=== PATIENT | male | born 1995 | race Caucasian/White ===

== ENCOUNTER 2019-03-24 20:39 | Inpatient (IN) | payer BC ==
[2019-03-24] MEDS ORDERED: Charcoal ACTIVATED* 25 GM/120 ML BTL PO ONE (20:51)
--- NOTE | 2019-03-24 20:53 | ED ---
Substance Abuse/Use - HPI Summary HPI Summary: This patient is a 23 year old M brought in by ambulance to [facility] with a chief complaint of overdose on approximately 10 pills (10mg of Ambien each) that occurred at approximately 1700 today. Symptoms aggravated by nothing. Symptoms alleviated by nothing. EMS reports the patient stating he had SI. Patient states he called his parents right before taking the Ambien. Per EMS, the patients father called 911. Per EMS, the patient was found with Benadryl packets around him; however, the patient denies taking them. - History Of Current Complaint Stated Complaint: "941/OD" PER EMS Time Seen by Provider: 03/24/19 20:42 Hx Obtained From: Patient, EMS Onset/Duration of Drug/ETOH Abuse: Hours Ingestion History: Type/Name Of Drug - Ambien Overdose Characteristics: Oral Aggravating Factor(s): Nothing Alleviating Factor(s): Nothing Associated Signs And Symptoms: Other: - Positive SI - Allergies/Home Medications Allergies/Adverse Reactions: Allergies Allergy/AdvReac Type Severity Reaction Status Date / Time No Known Allergies Allergy Verified 03/24/19 21:19 Home Medications: Home Medications Dextroamphetamine/Amphetamine [Dextroamp-Amphetamin 20 mg Tab] 20 mg PO DAILY [History Confirmed 03/25/19] Zolpidem Tartrate 10 mg PO BEDTIME 03/25/19 [History Confirmed 03/25/19] PMH/Surg Hx/FS Hx/Imm Hx Previously Healthy: Yes Opthamlomology History: Denies: Hx Legally Blind EENT History: Denies: Hx Deafness - Family History Known Family History: Positive: Unknown - Patient is unable to answer question due to overdose - Social History Occupation: Student Lives: Dormitory/Roommates Alcohol Use: Weekly Hx Substance Use: Yes Substance Use Type: Reports: Marijuana Hx Tobacco Use: Yes Smoking Status (MU): Light Every Day Tobacco Smoker Review of Systems Negative: Fever Psychological: Other - Positive overdose and SI All Other Systems Reviewed And Are Negative: Yes Physical Exam - Summary Physical Exam Summary: VITAL SIGNS: Reviewed. GENERAL: Patient is a well-developed and nourished male who is lying comfortable in the stretcher. Patient is not in any acute respiratory distress. HEAD AND FACE: No signs of trauma. No ecchymosis, hematomas or skull depressions. No sinus tenderness. EYES: PERRLA, EOMI x 2, No injected conjunctiva, no nystagmus. EARS: Hearing grossly intact. Ear canals and tympanic membranes are within normal limits. MOUTH: Oropharynx within normal limits. NECK: Supple, trachea is midline, no adenopathy, no JVD, no carotid bruit, no c- spine tenderness, neck with full ROM CHEST: Symmetric, no tenderness at palpation LUNGS: Clear to auscultation bilaterally. No wheezing or crackles. CVS: Regular rate and rhythm, S1 and S2 present, no murmurs or gallops appreciated. ABDOMEN: Soft, non-tender. No signs of distention. No rebound no guarding, and no masses palpated. Bowel sounds are normal. EXTREMITIES: FROM in all major joints, no edema, no cyanosis or clubbing. NEURO: Alert and oriented x 3. No acute neurological deficits. Follows commands. Answering questions but slowly SKIN: Dry and warm Triage Information Reviewed: Yes Vital Signs Reviewed: Yes Diagnostics - Laboratory Result Diagrams: 03/24/19 21:00 03/24/19 21:00 Lab Statement: Any lab studies that have been ordered have been reviewed, and results considered in the medical decision making process. - EKG 2100 Cardiac Rate: NL EKG Rhythm: Sinus Rhythm - [address] Segment: Normal Ectopy: None Summary of EKG Findings: An EKG taken at 2100 reveals nml sinus rhythm at 95 BPM with normal axis, normal interval, and no ischemic changes. Course/Dx - Course Course Of Treatment: This patient is a 23 year old M brought in by ambulance to [facility] with a chief complaint of overdose of approximately 10 pills (10mg of Ambien each) that occurred at approximately 1700 today. Physical Exam Findings: Answering questions but slowly. An EKG taken at 2100 reveals nml sinus rhythm at 95 BPM with normal axis, normal interval, and no ischemic changes. Bloodwork and UA obtained. In the ED course the patient was given charcoal. Patient will be signed out to Dr. Veliz upon shift change pending MHE and disposition. The patient is agreeable with this plan. - Diagnoses Provider Diagnoses: Depression Discharge - Sign-Out/Discharge Documenting (check all that apply): Sign-Out Patient Signing out patient TO: Andrew Veliz - Upon shift change pending MHE and disposition Patient Received Moderate/Deep Sedation with Procedure: No - Discharge Plan Condition: Stable - Attestation Statements Document Initiated by Scribe: Yes Documenting Scribe: Angela Rivera Provider For Whom Scribe is Documenting (Include Credential): Dr. Xandre Franklin MD Scribe Attestation: IAngela, scribed for Dr. Xander Franklin MD on 03/25/19 at 0659. Status of Scribe Document: Ready
[2019-03-24 21:08] LABS: ABS Eosinophils 0.1 10^3/ul (0-0.6); ABS Lymphocytes 2.3 10^3/ul (1.0-4.8); ABS Monocytes 0.8 10^3/ul (0-0.8); ABS Neutrophils 8.3 10^3/ul (1.5-7.7); Eosinophil % 0.8 %; Hematocrit 47 % (42-52); Lymphocyte % 20.1 %; Mean Corpuscular HGB Conc 34 g/dL (31-36); Mean Corpuscular Hemoglobin 30 pg (27-31); Mean Corpuscular Volume 86 fL (80-94); Mean Platelet Volume 8.3 fL (7.4-10.4); Nucleated Red Blood Cells % 0.1; Platelet Count 224 10^3/uL (150-450); Red Blood Count 5.39 10^6 /uL (4.18-5.48); Red Cell Distribution Width 14 % (10.5-15); White Blood Count 11.5 10^3/uL (3.5-10.8)
[2019-03-24 21:23] LABS: ALT 19 U/L (7-52); AST 14 U/L (13-39); Albumin 4.6 g/dL (3.2-5.2); Alkaline Phosphatase 45 U/L (34-104); Anion Gap 6 mmol/L (2-11); BUN/Creatinine Ratio 8.4 (8-20); Blood Urea Nitrogen 8 mg/dL (6-24); CO2 Carbon Dioxide 29 mmol/L (22-32); Calcium 9.9 mg/dL (8.6-10.3); Chloride 104 mmol/L (101-111); EGFR Non-African American 99.1 (>60); Globulin 2.3 g/dL (2-4); Glucose 101 mg/dL (70-100); Potassium 3.8 mmol/L (3.5-5.0); Sodium 139 mmol/L (135-145); Total Protein 6.9 g/dL (6.4-8.9)
[2019-03-24 21:30] LABS: Alcohol < 10 mg/dL (<10); Salicylate < 2.50 mg/dL (<30)
[2019-03-24 21:37] LABS: Acetaminophen < 15 mcg/mL
[2019-03-24 21:45] LABS: TSH (Thyroid Stimulating Horm) 0.87 mcIU/mL (0.34-5.60)
[2019-03-25 05:46] LABS: Urine Appearance Cloudy; Urine Bilirubin Negative (Negative); Urine Blood Negative (Negative); Urine Color Yellow; Urine Glucose Negative (Negative); Urine Ketones Negative (Negative); Urine Nitrite Negative (Negative); Urine Protein Negative (Negative); Urine Specific Gravity 1.015 (1.010-1.030); Urine Urobilinogen Negative (Negative)
[2019-03-25 06:06] LABS: Urine Benzodiazepine Screen None Detected (None Detect); Urine Opiates Screen None Detected (None Detect)
--- NOTE | 2019-03-25 07:44 | ED ---
Progress - Progress Note Progress Note: This patient was signed out from Dr. Franklin to Dr. Veliz upon shift change at 0700 on 03/25/19, pending MHE. MHE done at [address] Villarreal. The patient will be admitted with dx of unspecified depressive disorder. Patient understands and agrees with this plan. - Consult/PCP Time Called: 04:55 Course/Dx - Course Course Of Treatment: This patient was signed out from Dr. Franklin to Dr. Veliz upon shift change at 0700 on 03/25/19, pending MHE. MHE done at [address] Villarreal. The patient will be admitted with dx of unspecified depressive disorder. Patient understands and agrees with this plan. - Diagnoses Provider Diagnoses: Depressive disorder Discharge - Sign-Out/Discharge Documenting (check all that apply): Patient Departure - admit Patient Received Moderate/Deep Sedation with Procedure: No - Discharge Plan Condition: Stable Disposition: ADMITTED TO [facility] Referrals: No Primary Care Phys,NOPCP [Primary Care Provider] - - Attestation Statements Document Initiated by Scribe: Yes Documenting Scribe: Steve Weaver Provider For Whom Scribe is Documenting (Include Credential): Andrew Veliz MD Scribe Attestation: ISteve, scribed for Andrew Veliz MD on 03/25/19 at 0854. Status of Scribe Document: Ready
--- NOTE | 2019-03-25 08:01 | PN ---
ED Flex Patient Progress Note Date of Service: 03/24/19 Subjective: This is a 23 year-old M who is pending admission to [facility] / transfer to another psychiatric facility / discharge to home / or being observed secondary to OD on sleeping pills. Pt. examined in room 16 at 0800. He is sleeping comfortably. Objective: Vitals: Most recent vital signs documented below. General NAD Laboratory: Current laboratory results documented below. Assessment: OD Plan: Pending MHE. Vital Signs Temp Pulse Resp BP Pulse Ox 98.5 F 86 14 123/83 97 03/24/19 20:40 03/25/19 04:16 03/25/19 04:16 03/25/19 04:16 03/25/19 04:16 Lab Results - Entire Visit 03/25/19 03/25/19 03/24/19 05:30 05:30 21:00 WBC RBC Hgb Hct MCV MCH MCHC RDW Plt Count MPV Neut % (Auto) Lymph % (Auto) [place] % (Auto) Eos % (Auto) Baso % (Auto) Absolute Neuts (auto) Absolute Lymphs (auto) Absolute Monos (auto) Absolute Eos (auto) Absolute Basos (auto) Absolute Nucleated RBC Nucleated RBC % Sodium 139 Potassium 3.8 Chloride 104 Carbon Dioxide 29 Anion Gap 6 BUN 8 Creatinine 0.95 Est GFR ( Amer) 120.0 Est GFR (Non-Af Amer) 99.1 BUN/Creatinine Ratio 8.4 Glucose 101 H Calcium 9.9 Total Bilirubin 1.00 AST 14 ALT 19 Alkaline Phosphatase 45 Total Protein 6.9 Albumin 4.6 Globulin 2.3 Albumin/Globulin Ratio 2.0 TSH 0.87 Urine Color Yellow Urine Appearance Cloudy Urine pH 6.0 Ur Specific [place] 1.015 Urine Protein Negative Urine Ketones Negative Urine Blood Negative Urine Nitrate Negative Urine Bilirubin Negative Urine Urobilinogen Negative Ur Leukocyte Esterase Negative Urine Glucose Negative Urine Ascorbic Acid * A Salicylates < 2.50 Urine Opiates Screen None detected Acetaminophen < 15 Ur Barbiturates Screen None detected Ur Phencyclidine Scrn None detected Ur Amphetamines Screen Presumptive positive A U Benzodiazepines Scrn None detected Urine Cocaine Screen None detected U Cannabinoids Screen Presumptive positive A Serum Alcohol < 10 03/24/19 21:00 WBC 11.5 H RBC 5.39 Hgb 16.0 Hct 47 MCV 86 MCH 30 MCHC 34 RDW 14 Plt Count 224 MPV 8.3 Neut % (Auto) 71.8 Lymph % (Auto) 20.1 [place] % (Auto) 7.0 Eos % (Auto) 0.8 Baso % (Auto) 0.3 Absolute Neuts (auto) 8.3 H Absolute Lymphs (auto) 2.3 Absolute Monos (auto) 0.8 Absolute Eos (auto) 0.1 Absolute Basos (auto) 0.0 Absolute Nucleated RBC 0.0 Nucleated RBC % 0.1 Sodium Potassium Chloride Carbon Dioxide Anion Gap BUN Creatinine Est GFR ( Amer) Est GFR (Non-Af Amer) BUN/Creatinine Ratio Glucose Calcium Total Bilirubin AST ALT Alkaline Phosphatase Total Protein Albumin Globulin Albumin/Globulin Ratio TSH Urine Color Urine Appearance Urine pH Ur Specific [place] Urine Protein Urine Ketones Urine Blood Urine Nitrate Urine Bilirubin Urine Urobilinogen Ur Leukocyte Esterase Urine Glucose Urine Ascorbic Acid Salicylates Urine Opiates Screen Acetaminophen Ur Barbiturates Screen Ur Phencyclidine Scrn Ur Amphetamines Screen U Benzodiazepines Scrn Urine Cocaine Screen U Cannabinoids Screen Serum Alcohol
[2019-03-25] MEDS ORDERED: Acetaminophen TAB* 325 MG PO PRN (09:05)
[2019-03-25] MEDS ORDERED: Al Hydrox/Mg Hydrox/Simet LIQ* 30 ML UDC PO PRN (09:05)
[2019-03-25] MEDS ORDERED: hydrOXYzine HCL TAB* 50 MG PO PRN (09:06)
[2019-03-25] MEDS ORDERED: Nicotine* 2MG (FRUIT FLAVOR) GUM PO PRN (15:40)
--- NOTE | 2019-03-25 18:51 | HP ---
HISTORY AND PHYSICAL: DATE OF ADMISSION: 03/25/19 SUPERVISING PSYCHIATRIST: Dr. Karel Villarreal.* (DICTATED BY MASHA SHAH NP) JUSTIFICATION FOR ADMISSION: The patient presented to the emergency department after a suicide attempt via Ambien overdose. He merits hospitalization for immediate safety and stabilization. CHIEF COMPLAINT: "I panicked about school and faked a suicide attempt." HISTORY OF PRESENT ILLNESS: Jonel is a 23-year-old white male, domiciled, [employer] jamie majoring in [employer], who presented to the emergency department via EMS after his parents phoned from [place]. Today, during the interview, the patient is irritable, dismissive, and highly distractible. He reports difficulties distinguishing from reality. He endorses paranoid ideation. He states that he does not trust anyone who lives around him in the fraternity house. He has delusional thoughts of being spied on, being followed and roommates conspiring against him. He states that these thoughts have been going on for approximately 2 months. He denies a history of depression or previous suicide attempts. He states that he slept through a final exam on Friday morning, that he texted his outpatient psychiatrist that he took a handful of pills in the hopes of being hospitalized. Today, he is inconsistent with this and states that he does not need to be here, does not want to be here and is very irritable about being "imprisoned." The patient reports that he utilizes Adderall primarily as needed in regards to doing homework. He states that he smokes a lot of marijuana daily and is usually very high when doing homework. He reports inconsistent sleep patterns and that he went to his outpatient psychiatrist with complaints of poor sleep and was prescribed Ambien. The patient denies auditory or visual hallucinations. He denies obsessions, compulsions, or rituals. He denies phobias or eating disorder. He states that he is very concerned about getting bad grades and losing "60,000K." He reports his father came up a few weeks ago because "I was acting weird." He alludes to delusional thinking about his parents, but declines to elaborate. According to collateral information in the ED, the patient's father who is a professor at the [employer] in [place], spent 6 days with his son approximately 2 weeks ago. The patient reported telling his parents that he was paranoid and "tried to commit suicide and you know why." The patient's mother kept the patient on the phone while she contacted the police. The patient's parents are not aware of his outpatient treatment. According to collateral information, after the patient's father was with him for a week, his father felt comfortable returning to [place] as he had resumed normal behavior. The patient today denies history of suicide attempts. He is inconsistent about the overdose last night. He states that he is sure I looked up his search history and he even Googled "will this amount kill me." The patient goes on to say he is an anxious person and he worries about what other people think of him. He states that he probably should have never gone to college and that he certainly does not want to be a doctor. The patient denies a history of violence or aggression. PAST PSYCHIATRIC HISTORY: The patient denies a history of therapy or counseling. He denies a history of substance use treatment. I checked [facility] and he has been seeing Dr. Pedro Luis Michelle since August of last year. The patient stated that he went there due to not being able to concentrate. The patient denies a history of trauma or abuse. SUBSTANCE USE HISTORY: The patient reports "a lot of tobacco use via cigarettes and vape." He reports daily marijuana use and misuse of Adderall. He reports a history of experimenting with hallucinogens. Denies IV drug use. LEGAL HISTORY: Reports having a speeding ticket and charged with marijuana possession 2 years ago that was dismissed. PAST MEDICAL HISTORY: The patient denies active medical problems. PAST SURGICAL HISTORY: Appendectomy approximately 2 years ago, tonsillectomy and adenoidectomy as a child. CURRENT MEDICATIONS: 1. Adderall XR 20 mg daily. 2. Adderall IR 20 mg daily. 3. Ambien 10 mg q.h.s. ALLERGIES: No known drug allergies. [facility] PSYCHIATRIC PROVIDER: Dr. Pedro Luis Michelle. FAMILY PSYCHIATRIC HISTORY: The patient reports his sister has unspecified mental illness. He denies known history of suicide or substance use in the family. SOCIAL HISTORY: The patient is the middle of 3 children by parents who are and live in [place], [place]. His older sister lives in [facility]. His brother is a college student at the [employer]. The patient denies current dating. He denies history of sexual activity and identifies as heterosexual. 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 He denies history. REVIEW OF SYSTEMS: Constitutional: Negative. No fever, chills, or fatigue. ENT: Negative. Cardiovascular: Negative. Denies chest pain or palpitations. Respiratory: Negative. Denies shortness of breath or cough. Genitourinary: Negative. Musculoskeletal: Negative. Neurological: Negative. PHYSICAL EXAMINATION GENERAL: The patient is well appearing and well nourished. VITAL SIGNS: Height 5 feet 10 inches, weight approximately 240 pounds. T 97.2 , P 96, respiratory rate 18, O2 saturation 98%, BP 128/89. HEENT: Head and face: Normal head and face inspection. Eyes: Positive EOMI. PERRL. Conjunctivae clear. NECK: Supple. Full ROM. Trachea midline. RESPIRATORY: Lung sounds clear to auscultation, breath sounds present. CARDIOVASCULAR: Heart RRR. Pulses are symmetrical in both upper and lower extremities. MUSCULOSKELETAL: Normal strength. ROM intact. NEUROLOGICAL: Normal sensory and motor intact. Alert and oriented x3, with normal gait. Cerebellar function intact. SKIN: Warm, dry. Color reflects adequate perfusion. LABORATORY DATA: CBC generally unremarkable. Chemistry within normal limits. TSH normal at 0.87. Urinalysis within normal limits. Toxicology negative for salicylates, acetaminophen, or alcohol. Urine drug screen positive for amphetamines and cannabinoids. MENTAL STATUS EXAM: Jonel is a 23-year-old white male, who appears stated age. He is poorly groomed, wearing hospital scrubs, and hair is dark, curly, and disheveled. He is sleeping on approach, but able to arouse. The patient is alert and oriented x3. Eye contact is poor. He is irritable and dismissive. Speech is articulate and terse. Mood is agitated with constricted affect. No abnormal psychomotor activity noted. Thought process is impoverished, circumstantial, and distractible. Thought content is positive for paranoid delusions. He denies auditory or visual hallucinations. Insight and judgment are impaired. Fund of knowledge is adequate. He appears to have average intellect. DIAGNOSES: 1. Stimulant-induced psychotic disorder. 2. Cannabis use disorder. 3. Tobacco use disorder. 4. Rule out depressive disorder. ASSESSMENT: Jonel is a 23-year-old white male, domiciled, [employer] student, who presented to the emergency department via police after notifying parents and others of suicidal ideation. He reports onset of persecutory delusions in the past 2 months. He is inconsistent with much of his information and difficult to establish rapport. He will likely benefit from sleeping on the mental health unit for safety and stabilization. PLAN: The patient is admitted to adult behavioral services unit on involuntary status. Code status is full. He is placed on safety checks every 15 minutes. We will refrain from medications while the patient is detoxing from Adderall and marijuana. Estimated length of stay is 3 to 5 days. Discharge planning will include family involvement and outpatient providers per the patient's consent. MASHA SHAH NP [id number]/CPS #: [id number] ALICIA
[2019-03-25] MEDS: Nicotine PATCH 21 MG/24 HR* PATCH TRANSDERM SCH (19:53)
[2019-03-25] MEDS: Nicotine Patch Removal NOTE PATCH OFF SCH (20:07)
[2019-03-26] MEDS: Nicotine PATCH 21 MG/24 HR* PATCH TRANSDERM SCH (09:25)
--- NOTE | 2019-03-26 10:59 | PN ---
Subjective - Subjective Date of Service: 03/26/19 Service Type: [id number] Hosp care 25 min moderate complexity Subjective: Received call from Ramy Kay sub plant manager. Patient declined to speak with him. Rahul reports he contacted all professors to notify patient is "out for medical reasons." The on-call sub plant manager for the weekend is Ana and will be able to be contacted through [place] security or via phone [phone]. Multiple attempts made to meet with patient. He remained in bed and gave yes/ no answers. Objective - General Observations Appearance: Unkempt Stature: Overweight Posture: Other (See Comment) - lying down on bed Eye Contact: Avoidant Behavior/Activity: Other (See Comment) - avoidant - Interaction Observations Attitude Towards Examiner: Dismissive Stated Mood: Dysphoric Affect: Blunted Speech Pattern/Tone: Quiet Volume Thought Process: Impoverished Perception: WNL Thought Content: Paranoid - Cognitive Function Orientation: A&O x 4 Level of Consciousness: Alert Cognition: WNL Estimated Intelligence: Normal Insight: Mostly Blames Others for Problems Judgment Within Normal Limits: No Ability to Make Reasonable Decisions: Serverely Impaired - Medication Compliance Cooperative with Inpatient Medication Regimen: No - Group Participation Participates in Group Activities: No Assessment - Assessment Merits Inpatient Hospitalization: For Immediate Safety, For Stabilization, For Ongoing Evaluation Inpatient DSM-V Dx: F15.150 Clinical Impression: 23yo , ramy ayala who presented to ED post suicide attempt via ambien overdose. He has been misusing adderall and engaging in polysubstance use. Patient is a poor historian and minimizing statements made prior to admission. He merits hospitalization for immediate safety and stabilization. Plan - Plan Treatment Plan: Name: SUMEET BERMUDEZ Birthdate: 1995 [id number] continue acute intensive psychiatric treatment. utilize hydroxyzine prn anxiety/agitation. obtain collateral from family and include in discharge planning when patient consents. Continued Medication Management: Consider Medication Medications: Current Medications Acetaminophen (Tylenol Tab*) 650 mg PO Q4H PRN PRN Reason: for pain; or Temp >101 F Al Hydrox/Mg Hydrox/Simethicone (Maalox Plus*) 30 ml PO Q4H PRN PRN Reason: INDIGESTION Hydroxyzine HCl (Atarax Tab*) 50 mg PO Q6H PRN PRN Reason: ANXIETY Last Admin: 03/25/19 15:55 Dose: 50 mg Nicotine (Nicotine Patch 21 Mg/24 Hr*) 1 patch TRANSDERM DAILY@0800 [facility] Last Admin: 03/26/19 09:25 Dose: Not Given Nicotine Polacrilex (Nicotine Gum*) 2 mg PO Q2H PRN PRN Reason: CRAVING Pharmacy Profile Note (Nicotine Patch Removal Note*) 1 note PATCH OFF 2100 [facility] Last Admin: 03/25/19 20:07 Dose: Not Given - Discharge Plan Discharge Plan: Inpatient Hospitalization
[2019-03-26] MEDS: Nicotine Patch Removal NOTE PATCH OFF SCH (22:52)
[2019-03-27] MEDS: Nicotine PATCH 21 MG/24 HR* PATCH TRANSDERM SCH (09:19)
[2019-03-27] MEDS: Nicotine Patch Removal NOTE PATCH OFF SCH (21:51)
[2019-03-28] MEDS: Nicotine PATCH 21 MG/24 HR* PATCH TRANSDERM SCH (07:40)
[2019-03-28 08:24] LABS: HDL Cholesterol 35.7 mg/dL
--- NOTE | 2019-03-28 14:22 | PN ---
Subjective - Subjective Date of Service: 03/28/19 Service Type: [id number] Hosp care 15 min low complexity Subjective: Sumeet reports being uncomfortable being confined on the unit, feels "antsy." Reports that his general mood is better than it was on Friday. Reviewed history of admission on after OD on 7x 10 mg zolpidem, overuse of Adderall before that,having stockpiled the med and using it not as prescribed. Reports OD was not so much to be as to cry for help. Reports also smoking a lot of "weed" in the weeks before admission here. Reports plan to return to [place], [place], and is interested in continued psychiatric care either there, or here if he returns for summer session. When asked about current mood, reports having recently learned the word "agoraphobia", which he feels is an accurate signifier of his current mood. Objective - General Observations Appearance: Unkempt Appears Stated Age: Yes Stature: WNL Posture: WNL Eye Contact: Average Behavior/Activity: WNL - Interaction Observations Attitude Towards Examiner: Cooperative Stated Mood: Anxious Speech Pattern/Tone: Clear, Appropriate, Normal Volume Thought Process: Coherent, Goal Directed Perception: WNL Thought Content: WNL Hallucination Type: None Delusion Type: None - Cognitive Function Orientation: A&O x 4 Level of Consciousness: Awake, Alert, Appropriate Cognition: WNL Estimated Intelligence: Normal Insight: WNL Judgment Within Normal Limits: Yes - Medication Compliance Cooperative with Inpatient Medication Regimen: Yes - Group Participation Participates in Group Activities: Yes Assessment - Assessment Merits Inpatient Hospitalization: For Immediate Safety, To Initiate Treatment, For Ongoing Evaluation Inpatient DSM-V Dx: F15.150 Clinical Impression: 23yo wm, ramy ayala who presented to ED post suicide attempt via ambien overdose. He has been misusing adderall and engaging in polysubstance use. Patient is a poor historian and minimizing statements made prior to admission. He merits hospitalization for immediate safety and stabilization. Plan - Plan Treatment Plan: Name: SUMEET BERMUDEZ Birthdate: 1995 [id number] continue acute intensive psychiatric treatment. utilize hydroxyzine prn anxiety/agitation. obtain collateral from family and include in discharge planning when patient consents. Medications: Current Medications Acetaminophen (Tylenol Tab*) 650 mg PO Q4H PRN PRN Reason: for pain; or Temp >101 F Al Hydrox/Mg Hydrox/Simethicone (Maalox Plus*) 30 ml PO Q4H PRN PRN Reason: INDIGESTION Hydroxyzine HCl (Atarax Tab*) 50 mg PO Q6H PRN PRN Reason: ANXIETY Last Admin: 03/25/19 15:55 Dose: 50 mg Nicotine (Nicotine Patch 21 Mg/24 Hr*) 1 patch TRANSDERM DAILY@0800 [facility] Last Admin: 03/28/19 07:40 Dose: Not Given Nicotine Polacrilex (Nicotine Gum*) 2 mg PO Q2H PRN PRN Reason: CRAVING Pharmacy Profile Note (Nicotine Patch Removal Note*) 1 note PATCH OFF 2100 [facility] Last Admin: 03/27/19 21:51 Dose: Not Given - Discharge Plan Discharge Plan: Outpatient Follow Up
[2019-03-28] MEDS: Nicotine Patch Removal NOTE PATCH OFF SCH (21:38)
[2019-03-29 08:58] VITALS: BP 124/71
[2019-03-29] MEDS: Nicotine PATCH 21 MG/24 HR* PATCH TRANSDERM SCH (11:25)
--- NOTE | 2019-03-29 12:15 | DCNOTE ---
Subjective - Subjective Service Types: 73141 Hosp DC Day Mgmt simple under 30 min Discharge Date: 03/29/19 Subjective: Patient is euthymic with full range of affect. He is identifies that "losing a grasp of reality" for at least 2-3 weeks was startling. He states that reflecting over the events leading to admission "made me want to re-evaluate a bunch of stuff." He states that his parents visited over the weekend and he told them about overuse of adderall and sleep deprivation. Patient states that I may notify his outpatient psychiatrist of admission. Patient receptive to positive feedback. He reports desire to be discharged. His parents are present and agreeable to plan. Objective - General Observations Appearance: Well Groomed Stature: WNL, Tall Posture: WNL Eye Contact: Average Behavior/Activity: WNL - Interaction Observations Attitude Towards Examiner: Cooperative Attitude Towards Parent/Guardian: Positive Interaction Stated Mood: Euthymic Affect: Full Speech Pattern/Tone: Clear, Appropriate, Normal Volume Thought Process: Coherent, Incoherent, Goal Directed Perception: WNL Thought Content: WNL Hallucination Type: None Delusion Type: None - Cognitive Function Orientation: A&O x 4 Level of Consciousness: Alert Cognition: WNL Estimated Intelligence: Normal Insight: WNL Judgment Within Normal Limits: Yes - Medication Compliance Cooperative with Inpatient Medication Regimen: Yes - Group Participation Participates in Group Activities: Yes DC Assessment - Assessment Clinical Impression: 23yo wm, ramy ayala who presented to ED post suicide attempt via ambien overdose. He has been misusing adderall and engaging in polysubstance use. Patient has been psychiatrically stabilized and is appropriate for discharge. 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 Discharge Planning - Discharge Planning Discharge Plan: Outpatient Follow Up Outpatient Program: Private Clinician(s) Recommendations for Continuing Care: Psychotherapy, Substance Abuse Counseling, Primary Care Followup Medications: Current Medications none Discharge Planning: Prescriptions provided for discharge [] Yes [x] No Follow up care details as per social work arrangements: psychiatrist, Dr Pedro Luis Michelle- awaiting return response primary care [facility] Patient response to discharge plan: [x] eager for discharge [x] agreeable with discharge plan [] ambivalent about discharge [] disagrees with discharge today
--- NOTE | 2019-03-30 17:18 | DS ---
CC: Dr. Danyel Michelle; [facility] DISCHARGE SUMMARY: DATE OF ADMISSION: 03/25/19 DATE OF DISCHARGE: 03/30/19 SUPERVISING PSYCHIATRIST: Dr. Karel Villarreal. DISCHARGE DIAGNOSIS: Stimulant-induced psychotic disorder. CONDITION AT TIME OF DISCHARGE: Improved. The patient is euthymic with bright affect. He is pleasa nt and participates fully in conversation. He identifies that Adderall and sleep deprivation were pr ecursors to presentation. He allowed administrative underwriter to coordinate with his outpatient psychiatrist, Dr. Carolyn bo. He states that his parents visit over the weekend and he told them about overuse of Adderall and sleep deprivation. The patient reports desire to be discharged. His parents are present and agreea ble to plan. The patient is discharged to home. MENTAL STATUS EXAM: Jonel is a 23-year-old white male, who appears stated age. He is adequately gr oomed, casually dressed in his own clothing. He is alert and oriented x3. Eye contact is good. Spe ech is soft, articulate, and spontaneous. He reports his mood is "good." No abnormal psychomotor act ivity is noted. Affect is full range. Memory is 3/3. Concentration is good. Thought process is lo gical and goal directed. Thought content is negative for suicidal ideation, passive wish, or p aranoid delusions. He denies auditory or visual hallucinations. Insight and judgment are good in thong t the patient has insight into precursors to admission. Fund of knowledge is excellent. He appears to have average intellect. INSTRUCTIONS GIVEN TO PATIENT: A. Medications: None. B. Diet: Regular. C. Activity: Ambulation as tolerated. Tobacco cessation is declined by the patient. There are no pending labs or diagnostic studies. D. Followup care: [facility] on 03/30/19 with [facility] and we are awaiting contact return [facility] psychiatrist, Dr. Danyel Michelle. E. Substance use followup. Referred to [facility]. The patient denies referal for substance use treatment. HOSPITAL COURSE: Part A: Reason for admission: The patient presented to the emergency department af ter a suicide attempt via Ambien overdose. Part B: Psychiatric Treatment Rendered: The patient was admitted to the adult behavioral services u nit on emergency status, 9.39. Code status was full. He was placed on 15-minute checks for safety. We discontinued medications and observed the patient diligently while he was detoxing from Adderall and marijuana. On day 2 of the admission, the patient reported improved general mood. He was increasingly interacti ve on the unit and participated in some of the programming. He slept well. He was safe on all checks and in behavioral control. He identified feeling detoxed from substances and therefore feeling grea t. On day of admission, the patient presented as well related, his parents were present and agreeabl e with discharge planning. The patient had coordinated with the [employer] [facility] and w as going to clarify how he can finish the semester. HISTORY OF PRESENT ILLNESS: Jonel is a 23-year-old white male, domiciled, [place], majoring in Biology, who presented to the ED via EMS after his parents phoned from [place]. Today, during e interview, the patient is irritable, dismissive, and highly distractible. He reports difficulties distinguishing from reality. He endorses paranoid ideation. He states that does not trust anyone wh o lives around him in the fraternity house. He has delusional thoughts of being spied on, being foll owed by roommates conspiring against him. He states that these thoughts have been going on for appro ximately 2 months. He denies a history of depression or previous suicide attempts. He states that dedra rocha slept through a final exam on Friday morning and he texted his outpatient psychiatrist that he t ook a handful of pills in the hopes of being hospitalized. Today, he is inconsistent with this and st ates that he does not need to be here, does not want to be here and is very irritable about being "im prisoned." The patient reports that he utilizes Adderall primarily as needed in regards to doing terrell ework. He states that he smokes "a lot" of marijuana daily and is usually very high when doing homew ork. He reports inconsistent sleep patterns and that he went to his outpatient psychiatrist with com plaints of poor sleep and was prescribed Ambien. He denies auditory or visual hallucinations. He de nies obsessions, compulsions, or rituals. He denies phobias or eating disorder. He states that he i s very concerned about getting bad grades and losing 60K. He reports his father came up a few weeks ago because he was acting weird. He alludes to delusional thinking about his parents, but declines to elaborate. According to collateral information in the ED, the patient's father who is a professor at the [employer] in [place], spent 6 days with his son approximately 2 weeks ago. T he patient reported telling his parents that he was paranoid and "tried to commit suicide and you kno w why." The patient's mother kept the patient on the phone while she contacted the police. The amy ent's parents were not aware of his outpatient treatment. According to collateral information, after the patient's father was with him for a week, his father felt comfortable returning to [place] as th e patient had resumed normal behavior. On day of presentation, the patient denied history of suicide attempts. He was inconsistent about the overdose attempt. He states that he is sure. I looked up his search history and he even googled "will this amount kill me?" The patient goes on to say he is an anxious person and he worries about what other people think of him. He states that he probably sh ould have never gone to college and that he does not want to be a doctor. The patient denies a histo ry of violence or aggression. MASHA SHAH, LOVE [id number]/[facility] #: [id number]
== END 2019-03-29 12:40 | disposition home or self-care (01) | DRG 776 ==
LOC: ED 20:39 → BSU 03-25 09:05
PROVIDERS: ADMIT Psychiatry & Neurology Psychiatry; ATTEND Psychiatry & Neurology Psychiatry
DX: F15.150 Other stimulant abuse with stimulant-induced psychotic disorder with delusions (principal); T42.6X2A Poisoning by other antiepileptic and sedative-hypnotic drugs, intentional self-harm, initial encounter; F15.10 Other stimulant abuse, uncomplicated; F17.210 Nicotine dependence, cigarettes, uncomplicated; F12.90 Cannabis use, unspecified, uncomplicated; Y92.214 College as the place of occurrence of the external cause; Z79.899 Other long term (current) drug therapy; Z81.8 Family history of other mental and behavioral disorders
CPT/HCPCS: 36415; 80053; 80061; 80307; 80320; 80329; 81003; 83036; 84443; 85025; 93005; 99222; 99231; 99232; 99238; 99283; A9270-GY; G0480